=== PATIENT | male | born 1940 | race Caucasian/White ===

== ENCOUNTER 2018-03-28 11:11 | Observation (INO) ==
--- NOTE | 2018-03-28 11:44 | XR ---
EXAM DATE: 03/28/2018 11:40 AM EDT AGE/SEX: 78 years / Male INDICATIONS: Chest pain today. CLINICAL DATA: This is the patient's initial encounter. Patient reports that signs and symptoms have been present for 1 day and indicates a pain score of 6/10. MEDICAL/SURGICAL HISTORY: Chronic obstructive pulmonary disease. Emphysema. None. COMPARISON: POI, XR CHEST PA AND LAT, 11/19/2017. . FINDINGS: The cardiac mediastinal contours are within normal limits. The lungs demonstrate chronic appearing in terstitial changes but are otherwise clear. The visualized bony structures are grossly intact. CONCLUSION: No acute cardiopulmonary findings. Stable compared to previous dated 11/19/2017 Electronically signed by: Jean Claude Lassiter MD 03/28/2018 11:43 AM EDT
--- NOTE | 2018-03-28 11:46 | ED ---
HPI General Chief Complaint: Chest Pain Stated Complaint: physician sent-Irrigular heartbeat Time Seen by Provider: 03/28/18 11:24 Source: patient and family Mode of arrival: ambulatory Limitations: no limitations History of Present Illness HPI narrative: Patient is a 78-year-old male presenting to emerge from for evaluation of chest pain. Patient was sent by his primary care provider Dr. Carrillo. Patient states he felt "funny" on Wednesday. Then this morning he was at his shop and he experienced a squeezing chest pain, became flushed and short of breath. This prompted him to resent to the clinic where they performed an EKG, he was told he had an irregular rhythm and was sent to emergency department. Patient has no complaints at this time. Past medical history significant for COPD, patient takes a baby aspirin daily. He had a stress test over 12 years ago when he lived in [place]. Patient has never had a cardiac catheterization. Patient has a remote history of tobacco use, he quit in 1994. Patient denies any significant past medical history of heart disease. Patient further denies any nausea, vomiting, dizziness, lightheadedness, abdominal pain. MD complaint: chest pain Complete Quality Measures for STEMI Alert Patients STEMI Alert: No Onset (ago): hour(s) Duration: improved Onset: during exertion Pain location: substernal Severity: moderate Severity scale (1-10): 5 Quality: tightness Pain radiation: none Relieving factors: nothing Exacerbating factors: nothing Associated symptoms: dyspnea Related Data Home Medications Medication Instructions Recorded Confirmed fluticasone-vilanterol [Breo 1 inh INHALATION DAILY 03/28/18 03/28/18 Ellipta] Allergies Allergy/AdvReac Type Severity Reaction Status Date / Time No Known Allergies Allergy Uncoded 03/11/16 13:51 Review of Systems ROS: all other systems reviewed are negative Constitutional Denies fever(s) and Denies weight gain Eyes Denies blurry vision ENT Denies dizziness Cardiovascular Reports diaphoresis and Reports dyspnea Respiratory Denies cough and Denies wheezing Gastrointestinal Reports system reviewed and no additional complaints, except as [facility] Genitourinary Reports system reviewed and no additional complaints, except as [facility] Musculoskeletal Reports system reviewed and no additional complaints, except as [facility] Neurologic Reports system reviewed and no additional complaints, except as [facility] Psychiatric Reports system reviewed and no additional complaints, except as [facility] Medical History Medical History COPD (chronic obstructive pulmonary disease) (Chronic) Cataract (Chronic) Emphysema of lung (Chronic) Jaw fracture (Resolved) Surgical History Surgical History History of knee replacement (Resolved) Social History Social History Substance History: No History of Abuse Second Hand Smoke Exposure: No Smoking Status: Former smoker Tobacco Type: Cigarettes How Often Do You Have a Drink Containing Alcohol: Never Recent Travel in [facility] within the Last 8 Weeks: No Recent Out of Country Travel within the Last 8 Weeks: No Immunization History Tetanus Immunization: Unsure Hx Influenza Vaccine This Season: No Exam Narrative Exam Narrative: GENERAL: Overweight, well-developed, alert elderly male. Presenting in no acute distress. SKIN: Focused skin assessment warm/dry. HEAD: Atraumatic. Normocephalic. EYES: Pupils equal and round. No scleral icterus. No injection or drainage. ENT: No nasal bleeding or discharge. Mucous membranes pink and moist. NECK: Trachea midline. No JVD. CARDIOVASCULAR: Regular rate and rhythm. No murmur appreciated. RESPIRATORY: No accessory muscle use. Clear to auscultation. Breath sounds equal bilaterally. GASTROINTESTINAL: Abdomen soft, non-tender, nondistended. Hepatic and splenic margins not palpable. Positive bowel sounds, no rebound, no guarding. MUSCULOSKELETAL: No obvious deformities. No clubbing. No cyanosis. No edema. NEUROLOGICAL: Awake and alert. No obvious cranial nerve deficits. Motor grossly within normal limits. Normal speech. PSYCHIATRIC: Appropriate mood and affect; insight and judgment normal. Course Initial Documented Vital Signs Temperature 97.7 F 03/28/18 11:18 Pulse Rate 91 H 03/28/18 11:18 Respiratory Rate 17 03/28/18 11:18 Blood Pressure 142/71 H 03/28/18 11:18 Pulse Oximetry 96 03/28/18 11:18 Last Documented Vital Signs Temperature 97.7 F 03/28/18 11:18 Pulse Rate 71 03/28/18 14:04 Respiratory Rate 18 03/28/18 14:04 Blood Pressure 158/73 H 03/28/18 14:04 Pulse Oximetry 94 L 08/13/18 14:04 Medical Decision Making DEREK Attestation DEREK supervised visit: Yes Attestation: I, Dr. Ponce, have reviewed the advance practice practitioner's documentation and am in agreement, met with the patient face to face, made the diagnosis, and the medical decision making was done by me. *My assessment and Findings: Patient is a 78-year-old male who was sent to the emergency room by his primary care doctor for evaluation of chest pain. Patient reports that he was at work on Wednesday and felt tightness and squeezing sensation to his chest. He did feel short of breath with the symptoms. Patient follow-up with Dr. Carrillo today and was told to come to the emergency room for evaluation. Patient is currently chest pain-free at this time, patient will undergo a chest pain workup. MDM Narrative Medical decision making narrative: Patient is a 78-year-old male presenting to the emergency department for evaluation of chest pain and an abnormal EKG and his primary care provider's office this morning. Patient's vital signs are stable, labs and imaging ordered and pending. EKG was reviewed by my attending physician. Patient was given additional 243 mg of aspirin equal a total dose of 324 mg. Patient is currently pain-free. Labs reviewed, patient has neutropenia, he has no sign of infection or previous recent infections. He denies any recent weight loss or change in activity. This is new when compared to prior results. Cardiac enzymes are negative 1 set patient has been resting comfortably. Patient will be admitted to medicine. Patient advised on findings and plan of care. Patient is agreeable to stay. Differential Diagnosis Differential Diagnosis: ACS versus USA versus metabolic abnormality versus arrhythmia versus other Medical Records Medical records reviewed: Yes I reviewed the patient's medical records. Lab Data Result diagrams: 03/28/18 11:31 03/28/18 11:31 Lab Results 03/28/18 03/28/18 03/28/18 Range/Units 11:31 11:31 11:31 WBC 1.8 L (4.0-11.0) th/mm3 RBC 4.29 L (4.50-5.90) mil/mm3 Hgb 13.5 (13.0-17.0) gm/dL Hct 38.0 L (39.0-51.0) % MCV 88.5 (80.0-100.0) fL MCH 31.5 (27.0-34.0) pg MCHC 35.6 (32.0-36.0) % RDW 14.6 (11.6-17.2) % Plt Count 134 L (150-450) th/mm3 MPV 6.6 L (7.0-11.0) fL Prelim Diff (Auto) Slide review pending Neut % (Auto) 22.8 (16.0-70.0) % Lymph % (Auto) 58.3 H (9.0-44.0) % Hutchinson % (Auto) 14.6 H (0.0-8.0) % Eos % (Auto) 3.2 (0.0-4.0) % Baso % (Auto) 1.1 (0.0-2.0) % Neut # (Auto) 0.4 L* (1.8-7.7) th/mm3 Lymph # (Auto) 1.0 (1.0-4.8) th/mm3 Hutchinson # (Auto) 0.3 (0.0-0.9) th/mm3 Eos # (Auto) 0.1 (0.0-0.4) th/mm3 Baso # (Auto) 0.0 (0.0-0.2) th/mm3 WBC Differential Manual diff final Seg Neuts % (Manual) 26 (16-70) % Lymphocytes % (Manual) 61 H (9-44) % Monocytes % (Manual) 11 H (0-8) % Eosinophils % (Manual) 1 (0-4) % Basophils % (Manual) 1 (0-2) % Abs Neuts (Manual) 0.5 L* (1.8-7.7) th/mm3 Differential Comment . Platelet Estimate Low L (Normal) Platelet Morphology Normal (Normal) PT 11.2 (9.8-11.6) sec INR 1.1 Ratio APTT 24.5 (24.3-30.1) sec Sodium 142 (136-145) meq/L Potassium 3.9 (3.5-5.1) meq/L Chloride 109 H (98-107) meq/L Carbon Dioxide 25.5 (21.0-32.0) meq/L Anion Gap 8 (5-15) meq/L BUN 17 (7-18) mg/dL Creatinine 1.21 (0.60-1.30) mg/dL Estimated GFR 58 L (>89) mL/min Random Glucose 129 H (74-106) mg/dL Calcium 8.8 (8.5-10.1) mg/dL Magnesium 1.9 (1.5-2.5) mg/dL Total Bilirubin 0.8 (0.2-1.0) mg/dL AST 26 (15-37) U/L ALT 35 (12-78) U/L Alkaline Phosphatase 65 (45-117) U/L Total Creatine Kinase 81 (39-308) U/L Troponin I Less than 0.02 L (0.02-0.05) ng/mL Total Protein 7.8 (6.4-8.2) g/dL Albumin 3.6 (3.4-5.0) g/dL Lipase 99 (73-393) U/L Imaging Data Radiologist's impression: Chest X-Ray 03/28/18 11:24 CONCLUSION: No acute cardiopulmonary findings. Stable compared to previous dated 11/19/2017 Discharge Plan Discharge Disposition Patient Disposition: 30 Still Patient Discharge Condition Condition: Stable Discharge Details Diagnosis: Atypical chest pain, Neutropenia Physicians Team ED Provider: Sania Ponce ED Midlevel Provider: Frances Ding Primary Care Provider: Torrey Peña Attending Provider: Yg Ahuja ED Status: Admitted Observation Patient
[2018-03-28 12:01] LABS: Baso % (Auto) 1.1 % (0.0-2.0); Eos # (Auto) 0.1 th/mm3 (0.0-0.4); Eos % (Auto) 3.2 % (0.0-4.0); Hemoglobin 13.5 gm/dL (13.0-17.0); Lymph % (Auto) 58.3 % (9.0-44.0); Mean Corpuscular HGB Conc 35.6 % (32.0-36.0); Mean Corpuscular Hemoglobin 31.5 pg (27.0-34.0); Mean Corpuscular Volume 88.5 fL (80.0-100.0); Mean Platelet Volume 6.6 fL (7.0-11.0); Mono # (Auto) 0.3 th/mm3 (0.0-0.9); Mono % (Auto) 14.6 % (0.0-8.0); Neut # (Auto) 0.4 th/mm3 (1.8-7.7); Neut % (Auto) 22.8 % (16.0-70.0); Platelet Count 134 th/mm3 (150-450); Red Blood Count 4.29 mil/mm3 (4.50-5.90); Red Cell Distribution Width 14.6 % (11.6-17.2); White Blood Count 1.8 th/mm3 (4.0-11.0)
[2018-03-28 12:13] LABS: Activated Partial Thrombo Time 24.5 sec (24.3-30.1); INR 1.1 Ratio; Prothrombin Time 11.2 sec (9.8-11.6)
[2018-03-28 12:19] LABS: Alanine Aminotransferase 35 U/L (12-78); Albumin 3.6 g/dL (3.4-5.0); Anion Gap 8 meq/L (5-15); Aspartate Aminotransferase 26 U/L (15-37); Blood Urea Nitrogen 17 mg/dL (7-18); Calcium 8.8 mg/dL (8.5-10.1); Carbon Dioxide 25.5 meq/L (21.0-32.0); Chloride 109 meq/L (98-107); Glomerular Filtration Rate 58 mL/min (>89); Glucose,Random 129 mg/dL (74-106); Lipase 99 U/L (73-393); Magnesium 1.9 mg/dL (1.5-2.5); Potassium 3.9 meq/L (3.5-5.1); Sodium 142 meq/L (136-145)
[2018-03-28 12:21] LABS: Alkaline Phosphatase 65 U/L (45-117); Total Protein 7.8 g/dL (6.4-8.2)
[2018-03-28 12:33] LABS: Creatine Kinase 81 U/L (39-308)
[2018-03-28 12:36] LABS: Eosinophils 1 % (0-4); Lymphocytes 61 % (9-44); Monocytes 11 % (0-8); Platelet Morphology Normal (Normal)
[2018-03-28] MEDS ORDERED: Acetaminophen 325 MG Tablet PO PRN (15:27)
--- NOTE | 2018-03-28 15:31 | ECG ---
Date Performed: 03/28/2018 Time Performed: 11:42:17 PTAGE: 78 years EKG: Sinus rhythm RIGHT BUNDLE BRANCH BLOCK Cannot rule out INFERIOR MYOCARDIAL INFARCTION ABNORMAL ECG No significant change from prior electrocardiogram. PREVIOUS TRACING : 03/11/2016 14.14 DOCTOR: Keaton Alvarenga Interpretating Date/Time 03/28/2018 15:30:51
[2018-03-28] MEDS: Enoxaparin Inj 40 MG/0.4 ML Syringe SQ SCH (17:17)
--- NOTE | 2018-03-28 18:40 | P.HPIM ---
History of Present Illness Primary Care Physician: Torrey Peña DO Chief Complaint: Feeling unwell History of Present Illness: The patient is a 78-year-old male with a past uncle history of COPD who is presenting to the hospital after being referred to the hospital by his primary care doctor. He says that on Wednesday he started to feel unwell. He said that he felt sort of chest pressure but not chest pain. He felt rather hot. He said that he did not feel like himself. He had some discomfort with breathing but did not complain of shortness of breath. He says that this morning his symptoms continued but were more aggressive. He went to his primary care doctor who did an EKG on him and referred him to the hospital for further evaluation. The patient was found to have a low white blood cell count in the emergency department. The patient denies any recent medications. He does not recall any recent insect bite or rashes. He says that a few years ago he had a low white blood cell count and was unsure of the cause of that. Review of Systems All other systems reviewed negative except as stated in HPI PMFSH - History History Provided By: Patient - Medical History Medical History: Medical History (Last Reviewed 03/28/18 @ 11:45 by PARMINDER Sepulveda) Cataract Emphysema of lung Jaw fracture COPD (chronic obstructive pulmonary disease) - Surgical History Surgical History: Surgical History (Last Reviewed 03/28/18 @ 11:45 by PARMINDER Sepulveda) History of knee replacement - Family History Family History: Family History (Last Updated 03/28/18 @ 18:37 by Yg Ahuja DO) Other Emphysema lung Pneumonia Rectal cancer - Tobacco History Second Hand Smoke Exposure: No Tobacco Use In Past 30 Days: No Smoking Status: Former smoker Tobacco Type: Cigarettes - Alcohol History How Often Do You Have a Drink Containing Alcohol: Never - Substance Use History Substance History: No History of Abuse - Travel History Recent Travel in the [place] Within the Last 8 Weeks: No Recent Travel Out of the Country Within the Last 8 Weeks: No - Immunization History Tetanus Immunization: Unsure Hx Influenza Vaccine This Season: No Medications and Allergies Active Medications: Active Medications Acetaminophen (Tylenol) 650 mg PO Q4H PRN PRN Reason: Temp > 100.4 Enoxaparin Sodium (Lovenox Inj) 40 mg SQ Q24H BRIAN Last Admin: 03/28/18 17:17 Dose: 40 mg Fluticasone/Vilanterol (Breo Ellipta 200/25 Mcg Inh) 1 puff INH DAILY BRIAN Sodium Chloride (Ns Flush) 2 ml IV.FLUSH UNSCH PRN PRN Reason: FLUSH AFTER USING IV ACCESS Allergies Allergy/AdvReac Type Severity Reaction Status Date / Time No Known Allergies Allergy Uncoded 03/11/16 13:51 Home Medications Medication Instructions Recorded Confirmed Type fluticasone-vilanterol [Breo 1 inh INHALATION DAILY 03/28/18 03/28/18 History Ellipta] Exam Vital signs: Vital Signs 03/28/18 11:18 03/28/18 11:37 03/28/18 14:04 Temperature 97.7 F Pulse Rate 91 H 79 71 Respiratory Rate 17 20 18 Blood Pressure 142/71 H 145/67 H 158/73 H Pulse Oximetry 96 96 94 L 03/28/18 16:00 Temperature 97.5 F L Pulse Rate 64 Respiratory Rate 16 Blood Pressure 162/82 H Pulse Oximetry 97 Intake & Output 03/27/18 03/28/18 03/28/18 18:59 06:59 18:59 Weight 98.883 kg Other: Weight On Admission 98.883 kg Narrative: GENERAL: No acute distress. SKIN: Focused skin assessment warm/dry. HEAD: Atraumatic. Normocephalic. EYES: Pupils equal and round. No scleral icterus. No injection or drainage. ENT: No nasal bleeding or discharge. Mucous membranes pink and moist. NECK: Trachea midline. No JVD. CARDIOVASCULAR: Regular rate and rhythm. No murmur appreciated. RESPIRATORY: No accessory muscle use. Clear to auscultation. Breath sounds equal bilaterally. GASTROINTESTINAL: Abdomen soft, non-tender, nondistended. Hepatic and splenic margins not palpable. Positive bowel sounds, no rebound, no guarding. MUSCULOSKELETAL: No obvious deformities. No clubbing. No cyanosis. No edema. NEUROLOGICAL: Awake and alert. No obvious cranial nerve deficits. Motor grossly within normal limits. Normal speech. PSYCHIATRIC: Appropriate mood and affect; insight and judgment normal. Results - Labs CBC & Chem 7: 03/28/18 11:31 03/28/18 11:31 Labs: Short CBC 03/28/18 Range/Units 11:31 WBC 1.8 L (4.0-11.0) th/mm3 Hgb 13.5 (13.0-17.0) gm/dL Hct 38.0 L (39.0-51.0) % Plt Count 134 L (150-450) th/mm3 BMP 03/28/18 11:31 Sodium 142 Potassium 3.9 Chloride 109 H Carbon Dioxide 25.5 BUN 17 Creatinine 1.21 Calcium 8.8 Cardiac Enzymes 03/28/18 03/28/18 Range/Units 11:31 15:51 Total Creatine Kinase 81 (39-308) U/L Troponin I Less than 0.02 L Less than 0.02 L (0.02-0.05) ng/mL Liver Function 03/28/18 Range/Units 11:31 Total Bilirubin 0.8 (0.2-1.0) mg/dL AST 26 (15-37) U/L ALT 35 (12-78) U/L Alkaline Phosphatase 65 (45-117) U/L Albumin 3.6 (3.4-5.0) g/dL - Imaging Impressions Chest X-Ray 03/28/18 11:24 CONCLUSION: No acute cardiopulmonary findings. Stable compared to previous dated 11/19/2017 Caprini VTE Risk Assessment Caprini VTE Risk Assessment: No/Low Risk (score <= 1) Caprini Risk Assessment Model: Point Value = 1 Point Value = 2 Point Value = 3 Point Value = 5 Age 41-60 Minor surgery BMI > 25 kg/m2 Swollen legs Varicose veins or History of unexplained or recurrent spontaneous Oral contraceptives or hormone replacement Sepsis (< 1 month) Serious lung disease, including pneumonia (< 1 month) Abnormal pulmonary function Acute myocardial infarction Congestive heart failure (< 1 month) History of inflammatory bowel disease Medical patient at bed rest Age 61-74 Arthroscopic surgery Major open surgery (> 45 min) Laparoscopic surgery (> 45 min) Malignancy Confined to bed (> 72 hours) Immobilizing plaster cast Central venous access Age >= 75 History of VTE Family history of VTE Factor V Leiden Prothrombin [id number] Lupus anticoagulant Anticardiolipin antibodies Elevated serum homocysteine Heparin-induced thrombocytopenia Other congenital or acquired thrombophilia Stroke (< 1 month) Elective arthroplasty Hip, pelvis, or leg fracture Acute spinal cord injury (< 1 month) Prophylaxis Regimen: Total Risk Factor Score Risk Level Prophylaxis Regimen 0-1 Low Early ambulation 2 Moderate Order ONE of the following: *Sequential Compression Device (SCD) *Heparin 5000 units SQ BID 3-4 Higher Order ONE of the following medications: *Heparin 5000 units SQ TID *Enoxaparin/Lovenox 40 mg SQ daily (WT < 150 kg, CrCl > 30 mL/min) *Enoxaparin/Lovenox 30 mg SQ daily (WT < 150 kg, CrCl > 10-29 mL/min) *Enoxaparin/Lovenox 30 mg SQ BID (WT < 150 kg, CrCl > 30 mL/min) AND/OR *Sequential Compression Device (SCD) 5 or more Highest Order ONE of the following medications: *Heparin 5000 units SQ TID (Preferred with Epidurals) *Enoxaparin/Lovenox 40 mg SQ daily (WT < 150 kg, CrCl > 30 mL/min) *Enoxaparin/Lovenox 30 mg SQ daily (WT < 150 kg, CrCl > 10-29 mL/min) *Enoxaparin/Lovenox 30 mg SQ BID (WT < 150 kg, CrCl > 30 mL/min) AND *Sequential Compression Device (SCD) Assessment and Plan - Plan Neutropenia/ Thrombocytopenia No obvious cause. The pt has not taken any medication recently which would cause this. He does not drink alcohol. Has had an episode in the past which resolved on its own. Possibly s/t viral infection. Afebrile. No sign of bleeding. -follow CBC with diff. -check peripheral smear. -check B12, folate and TSH. -neutropenic precautions. Chest tightness/ COPD The pt denies chest pain. EKG with RBBB. Trops negative x 2. May be s/t COPD, although breathing comfortably at this time. CXR unremarkable. -telemetry. -trend trops. -nebs as needed. Hyperglycemia/ HTN Likely a stress response. -monitor. -clonidine as needed. PPx: Ambulation H&P: Quality - VTE Deep Vein Thrombosis/Pulmonary Embolism Present on Admission: No
[2018-03-29 07:35] LABS: Baso % (Auto) 1.3 % (0.0-2.0); Eos # (Auto) 0.1 th/mm3 (0.0-0.4); Hematocrit 38.3 % (39.0-51.0); Hemoglobin 13.3 gm/dL (13.0-17.0); Lymph # (Auto) 0.9 th/mm3 (1.0-4.8); Lymph % (Auto) 72.4 % (9.0-44.0); Mean Corpuscular HGB Conc 34.7 % (32.0-36.0); Mean Corpuscular Hemoglobin 31.1 pg (27.0-34.0); Mean Corpuscular Volume 89.4 fL (80.0-100.0); Mean Platelet Volume 6.9 fL (7.0-11.0); Mono # (Auto) 0.2 th/mm3 (0.0-0.9); Mono % (Auto) 12.3 % (0.0-8.0); Neut # (Auto) 0.1 th/mm3 (1.8-7.7); Platelet Count 123 th/mm3 (150-450); Red Blood Count 4.28 mil/mm3 (4.50-5.90); Red Cell Distribution Width 14.8 % (11.6-17.2); White Blood Count 1.3 th/mm3 (4.0-11.0)
[2018-03-29 08:27] LABS: Eosinophils 6 % (0-4); Lymphocytes 74 % (9-44); Monocytes 10 % (0-8)
[2018-03-29 08:31] LABS: Platelet Morphology Normal (Normal)
[2018-03-29 08:46] LABS: Alanine Aminotransferase 32 U/L (12-78); Albumin 3.3 g/dL (3.4-5.0); Alkaline Phosphatase 67 U/L (45-117); Anion Gap 8 meq/L (5-15); Aspartate Aminotransferase 25 U/L (15-37); Blood Urea Nitrogen 16 mg/dL (7-18); Calcium 8.8 mg/dL (8.5-10.1); Carbon Dioxide 27.3 meq/L (21.0-32.0); Chloride 106 meq/L (98-107); Folate 13.3 ng/mL (3.1-17.5); Glomerular Filtration Rate 62 mL/min (>89); Glucose,Random 140 mg/dL (74-106); Sodium 141 meq/L (136-145); Thyroid Stimulating Hormone 0.981 uIU/mL (0.358-3.740); Total Protein 7.8 g/dL (6.4-8.2); Vitamin B12 223 pg/mL (193-986)
[2018-03-29] MEDS: Enoxaparin Inj 40 MG/0.4 ML Syringe SQ SCH (18:42)
--- NOTE | 2018-03-29 19:08 | P.HPFP ---
History of Present Illness Primary Care Physician: Torrey Peña DO Chief Complaint: Feeling unwell History of Present Illness: The patient is a 78-year-old male with a past uncle history of COPD who is presenting to the hospital after being referred to the hospital by his primary care doctor. He says that on Wednesday he started to feel unwell. He said that he felt sort of chest pressure but not chest pain. He felt rather hot. He said that he did not feel like himself. He had some discomfort with breathing but did not complain of shortness of breath. He says that this morning his symptoms continued but were more aggressive. He went to his primary care doctor who did an EKG on him and referred him to the hospital for further evaluation. The patient was found to have a low white blood cell count in the emergency department. The patient denies any recent medications. He does not recall any recent insect bite or rashes. He says that a few years ago he had a low white blood cell count and was unsure of the cause of that. Review of Systems Cardiovascular: Reports chest pain (no longer present) [facility] - History History Provided By: Patient - Medical History Medical History: Medical History (Last Reviewed 03/28/18 @ 11:45 by PARMINDER Sepulveda) Cataract Emphysema of lung Jaw fracture COPD (chronic obstructive pulmonary disease) - Surgical History Surgical History: Surgical History (Last Reviewed 03/28/18 @ 11:45 by PARMINDER Sepulveda) History of knee replacement - Family History Family History: Family History (Last Updated 03/28/18 @ 18:37 by Yg Ahuja DO) Other Emphysema lung Pneumonia Rectal cancer - Tobacco History Second Hand Smoke Exposure: No Tobacco Use In Past 30 Days: No Smoking Status: Former smoker Tobacco Type: Cigarettes - Alcohol History How Often Do You Have a Drink Containing Alcohol: Never - Substance Use History Substance History: No History of Abuse - Travel History Recent Travel in the [place] Within the Last 8 Weeks: No Recent Travel Out of the Country Within the Last 8 Weeks: No - Immunization History Tetanus Immunization: Unsure Hx Influenza Vaccine This Season: No Medications and Allergies Active Medications: Active Medications Acetaminophen (Tylenol) 650 mg PO Q4H PRN PRN Reason: Temp > 100.4 Albuterol (Duoneb Neb (Prn)) 1 ampul NEB Q6HR NEB PRN PRN Reason: DYSPNEA Clonidine HCl (Catapres) 0.1 mg PO Q6H PRN PRN Reason: SBP> OR = 180, DBP> OR = 100 Enoxaparin Sodium (Lovenox Inj) 40 mg SQ Q24H [facility] Last Admin: 03/29/18 18:42 Dose: 40 mg Fluticasone/Vilanterol (Breo Ellipta 200/25 Mcg Inh) 1 puff INH DAILY [facility] Last Admin: 03/29/18 09:11 Dose: 1 puff Sodium Chloride (Ns Flush) 2 ml IV.FLUSH UNSCH PRN PRN Reason: FLUSH AFTER USING IV ACCESS Allergies Allergy/AdvReac Type Severity Reaction Status Date / Time No Known Allergies Allergy Uncoded 03/11/16 13:51 Home Medications Medication Instructions Recorded Confirmed Type Aspirin Low Dose 81 mg PO DAILY 03/28/18 03/28/18 History Vitamin D3 Complete 50 mcg PO DAILY 03/28/18 03/28/18 History fluticasone-vilanterol [Breo 1 inh INHALATION DAILY 03/28/18 03/28/18 History Ellipta] Exam Vital signs: Vital Signs 03/28/18 19:50 03/28/18 20:00 03/28/18 23:17 Temperature Pulse Rate 73 68 Respiratory Rate 17 Blood Pressure 124/68 Pulse Oximetry 98 99 03/29/18 00:00 03/29/18 04:00 03/29/18 07:15 Temperature Pulse Rate 58 L 63 Respiratory Rate 15 Blood Pressure 142/85 H Pulse Oximetry 97 96 03/29/18 08:00 03/29/18 11:57 03/29/18 12:00 Temperature 97.4 F L 97.7 F Pulse Rate 65 68 71 Respiratory Rate 12 12 Blood Pressure 129/71 152/81 H Pulse Oximetry 95 96 03/29/18 16:00 Temperature 97.5 F L Pulse Rate 72 Respiratory Rate 12 Blood Pressure 141/84 H Pulse Oximetry 97 Intake & Output 03/29/18 03/29/18 03/30/18 06:59 18:59 06:59 Other: Date of Last Bowel Movement 03/28/18 - Constitutional no acute distress - Routine HEENT Exam Head: Present: normocephalic, atraumatic Eye: Present: EOMI, PERRL ENT: Present: mucous membranes moist - Routine Neck Exam Present: supple - Routine Cardiovascular Exam Present: RRR - Routine Abdominal Exam Present: soft, normoactive bowel sounds - Routine Neurological Exam Present: alert, oriented X3 Results - Labs Result diagrams: 03/29/18 06:15 03/29/18 06:15 Abnormal lab results 03/28/18 03/29/18 03/29/18 Range/Units 22:47 06:15 06:15 WBC 1.3 L (4.0-11.0) th/mm3 RBC 4.28 L (4.50-5.90) mil/mm3 Hct 38.3 L (39.0-51.0) % Plt Count 123 L (150-450) th/mm3 MPV 6.9 L (7.0-11.0) fL Neut % (Auto) 9.0 L (16.0-70.0) % Lymph % (Auto) 72.4 H (9.0-44.0) % Beauregard % (Auto) 12.3 H (0.0-8.0) % Eos % (Auto) 5.0 H (0.0-4.0) % Neut # (Auto) 0.1 L* (1.8-7.7) th/mm3 Lymph # (Auto) 0.9 L (1.0-4.8) th/mm3 Seg Neuts % (Manual) 9 L (16-70) % Lymphocytes % (Manual) 74 H (9-44) % Monocytes % (Manual) 10 H (0-8) % Eosinophils % (Manual) 6 H (0-4) % Abs Neuts (Manual) 0.1 L* (1.8-7.7) th/mm3 Platelet Estimate Low L (Normal) Estimated GFR 62 L (>89) mL/min Random Glucose 140 H (74-106) mg/dL Troponin I Less than 0.02 L (0.02-0.05) ng/mL Albumin 3.3 L (3.4-5.0) g/dL Short CBC 03/29/18 Range/Units 06:15 WBC 1.3 L (4.0-11.0) th/mm3 Hgb 13.3 (13.0-17.0) gm/dL Hct 38.3 L (39.0-51.0) % Plt Count 123 L (150-450) th/mm3 BMP 03/29/18 06:15 Sodium 141 Potassium 4.0 Chloride 106 Carbon Dioxide 27.3 BUN 16 Creatinine 1.14 Calcium 8.8 Cardiac Enzymes 03/28/18 Range/Units 22:47 Troponin I Less than 0.02 L (0.02-0.05) ng/mL Liver Function 03/29/18 Range/Units 06:15 Total Bilirubin 0.8 (0.2-1.0) mg/dL AST 25 (15-37) U/L ALT 32 (12-78) U/L Alkaline Phosphatase 67 (45-117) U/L Albumin 3.3 L (3.4-5.0) g/dL Caprini VTE Risk Assessment Caprini VTE Risk Assessment: No/Low Risk (score <= 1) (fully ambulatory) Caprini Risk Assessment Model: Point Value = 1 Point Value = 2 Point Value = 3 Point Value = 5 Age 41-60 Minor surgery BMI > 25 kg/m2 Swollen legs Varicose veins or History of unexplained or recurrent spontaneous Oral contraceptives or hormone replacement Sepsis (< 1 month) Serious lung disease, including pneumonia (< 1 month) Abnormal pulmonary function Acute myocardial infarction Congestive heart failure (< 1 month) History of inflammatory bowel disease Medical patient at bed rest Age 61-74 Arthroscopic surgery Major open surgery (> 45 min) Laparoscopic surgery (> 45 min) Malignancy Confined to bed (> 72 hours) Immobilizing plaster cast Central venous access Age >= 75 History of VTE Family history of VTE Factor V Leiden Prothrombin [id number] Lupus anticoagulant Anticardiolipin antibodies Elevated serum homocysteine Heparin-induced thrombocytopenia Other congenital or acquired thrombophilia Stroke (< 1 month) Elective arthroplasty Hip, pelvis, or leg fracture Acute spinal cord injury (< 1 month) Prophylaxis Regimen: Total Risk Factor Score Risk Level Prophylaxis Regimen 0-1 Low Early ambulation 2 Moderate Order ONE of the following: *Sequential Compression Device (SCD) *Heparin 5000 units SQ BID 3-4 Higher Order ONE of the following medications: *Heparin 5000 units SQ TID *Enoxaparin/Lovenox 40 mg SQ daily (WT < 150 kg, CrCl > 30 mL/min) *Enoxaparin/Lovenox 30 mg SQ daily (WT < 150 kg, CrCl > 10-29 mL/min) *Enoxaparin/Lovenox 30 mg SQ BID (WT < 150 kg, CrCl > 30 mL/min) AND/OR *Sequential Compression Device (SCD) 5 or more Highest Order ONE of the following medications: *Heparin 5000 units SQ TID (Preferred with Epidurals) *Enoxaparin/Lovenox 40 mg SQ daily (WT < 150 kg, CrCl > 30 mL/min) *Enoxaparin/Lovenox 30 mg SQ daily (WT < 150 kg, CrCl > 10-29 mL/min) *Enoxaparin/Lovenox 30 mg SQ BID (WT < 150 kg, CrCl > 30 mL/min) AND *Sequential Compression Device (SCD) Assessment and Plan - Assessment and Plan repeat cbc am H&P: Quality - VTE Deep Vein Thrombosis/Pulmonary Embolism Present on Admission: No
[2018-03-29 21:58] LABS: Eos # (Auto) 0.1 th/mm3 (0.0-0.4); Eos % (Auto) 4.7 % (0.0-4.0); Hemoglobin 13.5 gm/dL (13.0-17.0); Lymph # (Auto) 1.1 th/mm3 (1.0-4.8); Lymph % (Auto) 63.9 % (9.0-44.0); Mean Corpuscular HGB Conc 34.7 % (32.0-36.0); Mean Corpuscular Hemoglobin 31.2 pg (27.0-34.0); Mean Corpuscular Volume 89.9 fL (80.0-100.0); Mean Platelet Volume 6.4 fL (7.0-11.0); Mono # (Auto) 0.3 th/mm3 (0.0-0.9); Mono % (Auto) 16.2 % (0.0-8.0); Neut # (Auto) 0.2 th/mm3 (1.8-7.7); Neut % (Auto) 14.2 % (16.0-70.0); Platelet Count 126 th/mm3 (150-450); Red Blood Count 4.33 mil/mm3 (4.50-5.90); Red Cell Distribution Width 14.7 % (11.6-17.2); White Blood Count 1.7 th/mm3 (4.0-11.0)
[2018-03-29 22:53] LABS: Atypical Lymphs 7 % (0-0); Eosinophils 2 % (0-4); Lymphocytes 66 % (9-44); Monocytes 10 % (0-8)
[2018-03-29 23:02] LABS: Platelet Morphology Normal (Normal); RBC Morphology Normal (Normal)
[2018-03-30 07:34] LABS: Hematocrit 40.9 % (39.0-51.0); Hemoglobin 14.2 gm/dL (13.0-17.0); Mean Corpuscular HGB Conc 34.7 % (32.0-36.0); Mean Corpuscular Hemoglobin 31.4 pg (27.0-34.0); Mean Corpuscular Volume 90.5 fL (80.0-100.0); Mean Platelet Volume 6.7 fL (7.0-11.0); Platelet Count 123 th/mm3 (150-450); Red Blood Count 4.51 mil/mm3 (4.50-5.90); Red Cell Distribution Width 14.3 % (11.6-17.2); White Blood Count 1.6 th/mm3 (4.0-11.0)
[2018-03-30 07:36] VITALS: BP 137/76; PULSE 72; RESP 16; TEMP 97.8; O2SAT 95
--- NOTE | 2018-03-30 08:27 | P.DS ---
Date of admission: 03/28/18 14:47 Primary care physician: Torrey Peña DO Brief History from admission: The patient is a 78-year-old male with a past uncle history of COPD who is presenting to the hospital after being referred to the hospital by his primary care doctor. He says that on Wednesday he started to feel unwell. He said that he felt sort of chest pressure but not chest pain. He felt rather hot. He said that he did not feel like himself. He had some discomfort with breathing but did not complain of shortness of breath. He says that this morning his symptoms continued but were more aggressive. He went to his primary care doctor who did an EKG on him and referred him to the hospital for further evaluation. The patient was found to have a low white blood cell count in the emergency department. The patient denies any recent medications. He does not recall any recent insect bite or rashes. He says that a few years ago he had a low white blood cell count and was unsure of the cause of that. DS: Diagnosis - Discharge Diagnosis (1) Neutropenia Status: Acute DS: Summary Hospital Course: Cardiac work up negative troponin negative x3. Sat's maintained on room air, no complaints of SOB Serial CBC, completed for leukopenia. Neutropenic precautions implemented. Peripheral blood smear results- The peripheral blood demonstrates substantial leukopenia with absolute neutropenia. The neutrophils present are unremarkable. Dc to follow up with Hematology - Time Spent with Patient Total time spent providing and/or coordinating discharge services: 30 Less than 30 minutes - Quality: AMI Clinical Trial Participant: No - Quality: VTE Deep Vein Thrombosis/Pulmonary Embolism Present on Admission: No Exam Vital signs: Vital Signs 03/29/18 11:57 03/29/18 12:00 03/29/18 16:00 Temperature 97.7 F 97.5 F L Pulse Rate 68 71 72 Respiratory Rate 12 12 Blood Pressure 152/81 H 141/84 H Pulse Oximetry 96 97 03/29/18 20:00 03/30/18 00:00 03/30/18 00:52 Temperature 97.6 F 98 F Pulse Rate 78 65 73 Respiratory Rate 20 20 Blood Pressure 138/77 128/69 Pulse Oximetry 96 97 03/30/18 04:38 03/30/18 07:35 Temperature 98.3 F 97.8 F Pulse Rate 71 72 Respiratory Rate 20 16 Blood Pressure 144/71 H 137/76 Pulse Oximetry 97 95 Intake & Output 03/29/18 03/30/18 03/30/18 18:59 06:59 18:59 Other: Date of Last Bowel Movement 03/28/18 - Constitutional no acute distress - Routine HEENT Exam Eye: Present: PERRL ENT: Present: mucous membranes moist - Routine Neck Exam Present: supple - Routine Respiratory Exam Present: CTA bilaterally - Routine Cardiovascular Exam Present: S1, S2 - Routine Abdominal Exam Present: soft, normoactive bowel sounds - Routine Skin Exam Present: intact - Routine Neurological Exam Present: alert, oriented X3 - Routine Psychiatric Exam Present: cooperative Results Procedures completed during hospitalization: none Labs on day of discharge: Labs from last 24 hours 03/30/18 03/29/18 03/29/18 06:11 21:45 06:15 WBC 1.6 L 1.7 L RBC 4.51 4.33 L Hgb 14.2 13.5 Hct 40.9 39.0 MCV 90.5 89.9 MCH 31.4 31.2 MCHC 34.7 34.7 RDW 14.3 14.7 Plt Count 123 L 126 L MPV 6.7 L 6.4 L Prelim Diff (Auto) Slide review pending Neut % (Auto) 14.2 L Lymph % (Auto) 63.9 H Graves % (Auto) 16.2 H Eos % (Auto) 4.7 H Baso % (Auto) 1.0 Neut # (Auto) 0.2 L* Lymph # (Auto) 1.1 Graves # (Auto) 0.3 Eos # (Auto) 0.1 Baso # (Auto) 0.0 WBC Differential Manual diff final Seg Neuts % (Manual) 13 L Band Neuts % (Manual) 2 Lymphocytes % (Manual) 66 H Atypical Lymphs % (Man) 7 H Monocytes % (Manual) 10 H Eosinophils % (Manual) 2 Basophils % (Manual) Abs Neuts (Manual) 0.3 L* Differential Comment . Platelet Estimate Low L Platelet Morphology Normal RBC Morphology Normal Sodium 141 Potassium 4.0 Chloride 106 Carbon Dioxide 27.3 Anion Gap 8 BUN 16 Creatinine 1.14 Estimated GFR 62 L Random Glucose 140 H Calcium 8.8 Magnesium 2.0 Total Bilirubin 0.8 AST 25 ALT 32 Alkaline Phosphatase 67 Total Protein 7.8 Albumin 3.3 L Vitamin B12 223 Folate 13.3 TSH 0.981 03/29/18 06:15 WBC RBC Hgb Hct MCV MCH MCHC RDW Plt Count MPV Prelim Diff (Auto) Neut % (Auto) Lymph % (Auto) Graves % (Auto) Eos % (Auto) Baso % (Auto) Neut # (Auto) Lymph # (Auto) Graves # (Auto) Eos # (Auto) Baso # (Auto) WBC Differential Manual diff final Seg Neuts % (Manual) 9 L Band Neuts % (Manual) Lymphocytes % (Manual) 74 H Atypical Lymphs % (Man) Monocytes % (Manual) 10 H Eosinophils % (Manual) 6 H Basophils % (Manual) 1 Abs Neuts (Manual) 0.1 L* Differential Comment Platelet Estimate Low L Platelet Morphology Normal RBC Morphology Sodium Potassium Chloride Carbon Dioxide Anion Gap BUN Creatinine Estimated GFR Random Glucose Calcium Magnesium Total Bilirubin AST ALT Alkaline Phosphatase Total Protein Albumin Vitamin B12 Folate TSH - Impressions ITS Impressions Chest X-Ray 03/28/18 11:24 CONCLUSION: No acute cardiopulmonary findings. Stable compared to previous dated 11/19/2017 Discharge Plan - Discharge Disposition Patient Disposition: 01 Discharge Home - Discharge Condition Condition: Stable - Discharge Order Discharge Orders: Discharge Order (Routine); Ordered 03/30/18 Ordered By: Akila Briseno - Discharge Details Anticipated Discharge Date: 03/30/18 Discharge Comment: Follow up with Dr Peña next week - Physicians Team Primary Care Provider: Torrey Peña Attending Provider: Torrey Peña Other Providers: Torrey Peña DO
== END 2018-03-30 08:47 | disposition home or self-care (01) ==
LOC: NEPGCP 11:11 → NEPC 11:11 → NEDA 11:11 → NEPGCP 16:18
PROVIDERS: ADMIT Family Medicine; ATTEND Family Medicine